=== PATIENT | female | born 2000 | race Hispanic/Latino ===

== ENCOUNTER 2023-01-21 17:05 | Inpatient (IN) | payer OTHER ==
[2023-01-21 18:00] VITALS: BMI 28.9
[2023-01-21] MEDS ORDERED: hydrALAZINE 20 MG/ML VIAL SLOW IVP PRN (18:06)
[2023-01-21 18:47] LABS: #Monocytes 0.4 10x3/uL (0.0-1.1); #Neutrophils 7.1 10x3/uL (1.5-8.4); %Basophils 0.3 % (0.0-2.0); %Eosinophils 0.2 % (0.0-6.0); %Lymphocytes 22.8 % (18.0-47.0); %Monocytes 4.1 % (0.0-10.0); Hematocrit 33.6 % (34.9-44.5); Hemoglobin 10.9 g/dL (12.0-15.5); Mean Corpuscular HGB CONC 32.4 g/dL (32.0-36.0); Mean Corpuscular Hemoglobin 29.9 pg (27.0-33.0); Mean Corpuscular Volume 92.3 fl (81.6-98.3); Mean Platelet Volume 12.6 fl (7.4-10.4); Platelet Count 166 10x3/uL (150-450); RBC Distribution Width 14.2 % (11.5-14.5); Red Blood Cell (RBC) Count 3.64 10x6/uL (3.90-5.03); White Blood Cell (WBC) Count 9.9 10x3/uL (3.5-10.5)
[2023-01-21 19:06] LABS: ALT (SGPT) 8 U/L (8-55); AST (SGOT) 24 U/L (5-34); Albumin 3.3 g/dL (3.5-5.0); Alkaline Phosphatase 248 U/L (40-110); Anion Gap 15 mmol/L (10-20); BUN (Urea Nitrogen) 12 mg/dL (7.0-18.7); Bilirubin, Total 0.4 mg/dL (0.2-1.2); Calc. Creatinine Clearance 121 mL/min (70-130); Carbon Dioxide 19 mmol/L (22-29); Chloride 108 mmol/L (98-107); Estimated GFR 103; Globulin 3.4 g/dL (2.4-3.5); Glucose 93 mg/dL (70-105); Potassium 3.9 mmol/L (3.5-5.1); Protein, Total 6.7 g/dL (6.0-8.3); Sodium 138 mmol/L (136-145)
[2023-01-21 19:31] LABS: Creatinine, Urine 71.04 mg/dL (47-110)
== END 2023-01-21 22:27 | disposition home or self-care (01) | DRG 833 ==
LOC: CSHLD 17:05
PROVIDERS: ADMIT Student in an Organized Health Care Education/Training Program; ATTEND Student in an Organized Health Care Education/Training Program
DX: O12.23 Gestational edema with proteinuria, third trimester (principal); Z3A.37 37 weeks gestation of pregnancy; O99.513 Diseases of the respiratory system complicating pregnancy, third trimester; J45.909 Unspecified asthma, uncomplicated
CPT/HCPCS: 76819; 80053; 82570; 84156; 85025

== ENCOUNTER 2023-01-23 10:54 | Inpatient (IN) | payer OTHER ==
[~2023-01-23 10:54] MED LIST: Bupivacaine 0.25% HCL 30 ML VIAL ONE
[2023-01-23] MEDS ORDERED: Labetalol HCl 100 MG/20 ML VIAL SLOW IVP PRN ×2 (10:58)
[2023-01-23] MEDS ORDERED: Diphenoxylate HCl/Atropine Tablet PO PRN (10:58)
[2023-01-23] MEDS ORDERED: Tranexamic Acid 1,000 MG/10 ML VIAL IVP PRN (10:58)
[2023-01-23] MEDS ORDERED: Promethazine HCl 25 MG/ML VIAL IM PRN (10:58)
[2023-01-23] MEDS ORDERED: Acetaminophen 500 MG TAB PO PRN (10:58)
[2023-01-23] MEDS ORDERED: hydrALAZINE 20 MG/ML VIAL SLOW IVP PRN ×3 (10:58)
[2023-01-23] MEDS ORDERED: Carboprost 250 MCG/ML AMP IM PRN (10:58)
[2023-01-23] MEDS ORDERED: Lorazepam 2 MG/ML VIAL SLOW IVP PRN (10:58)
[2023-01-23] MEDS ORDERED: Ondansetron PF 4 MG/2 ML Vial IVP PRN (10:58)
[2023-01-23] MEDS ORDERED: Misoprostol 200 MCG TAB PR PRN (10:58)
[2023-01-23] MEDS ORDERED: Butorphanol Tartrate 1 MG/ML VIAL SLOW IVP PRN (10:58)
[2023-01-23] MEDS ORDERED: Calcium Gluc 4.6 MEQ/10 ML (100 MG/ML) SLOW IVP PRN (10:58)
[2023-01-23] MEDS ORDERED: Oxytocin 30 units/NS 500 ML 500 ML IV SCH (11:00)
[2023-01-23 11:57] VITALS: BMI 29.2
[2023-01-23 12:19] LABS: Hematocrit 33.2 % (34.9-44.5); Hemoglobin 11.1 g/dL (12.0-15.5); Mean Corpuscular HGB CONC 33.4 g/dL (32.0-36.0); Mean Corpuscular Hemoglobin 30.1 pg (27.0-33.0); Mean Platelet Volume 12.7 fl (7.4-10.4); Platelet Count 147 10x3/uL (150-450); RBC Distribution Width 14.4 % (11.5-14.5); Red Blood Cell (RBC) Count 3.69 10x6/uL (3.90-5.03); White Blood Cell (WBC) Count 6.7 10x3/uL (3.5-10.5)
[2023-01-23 12:26] LABS: ALT (SGPT) 9 U/L (8-55); AST (SGOT) 20 U/L (5-34); Alkaline Phosphatase 237 U/L (40-110); Anion Gap 14 mmol/L (10-20); BUN (Urea Nitrogen) 11 mg/dL (7.0-18.7); Bilirubin, Total 0.5 mg/dL (0.2-1.2); Calc. Creatinine Clearance 141 mL/min (70-130); Calcium 8.8 mg/dL (7.8-10.44); Carbon Dioxide 19 mmol/L (22-29); Chloride 110 mmol/L (98-107); Estimated GFR 122; Globulin 2.7 g/dL (2.4-3.5); Glucose 96 mg/dL (70-105); Protein, Total 5.7 g/dL (6.0-8.3); Sodium 139 mmol/L (136-145)
[2023-01-23 12:56] LABS: HBSAg Index 0.05 S/CO (0-0.99); Hep B Surf Ag - L&D Non-Reactive S/CO (NonReactive)
[2023-01-23 12:57] LABS: Syphilis Antibody Nonreactive (Nonreactive); Syphilis Antibody Index 0.05 S/CO (<1.00 Non-Reactive)
[2023-01-23] MEDS: Lactated Ringer's 1,000 ML IV SCH ×2 (13:00→16:50)
[2023-01-23] MEDS ORDERED: fentaNYL/Ropivacaine Epidural 100 ML ONE (16:33)
[2023-01-23] MEDS ORDERED: Ampicillin 2 GM VIAL ONE (21:35)
[2023-01-23] MEDS ORDERED: Gentamicin 300 MG in Sodium Chloride 0.9% 100 ML IVPB SCH (21:45)
[2023-01-23] MEDS ORDERED: Furosemide 40 MG/4 ML VIAL SLOW IVP SCH (22:00)
[2023-01-23 22:25] LABS: #Monocytes 0.4 10x3/uL (0.0-1.1); #Neutrophils 10.6 10x3/uL (1.5-8.4); %Basophils 0.2 % (0.0-2.0); %Lymphocytes 12.1 % (18.0-47.0); %Monocytes 3.4 % (0.0-10.0); %Neutrophils 83.8 % (40.0-75.0); Hematocrit 30.1 % (34.9-44.5); Hemoglobin 9.8 g/dL (12.0-15.5); Mean Corpuscular HGB CONC 32.6 g/dL (32.0-36.0); Mean Corpuscular Hemoglobin 29.7 pg (27.0-33.0); Mean Corpuscular Volume 91.2 fl (81.6-98.3); Mean Platelet Volume 12.8 fl (7.4-10.4); Platelet Count 144 10x3/uL (150-450); RBC Distribution Width 14.6 % (11.5-14.5); White Blood Cell (WBC) Count 12.6 10x3/uL (3.5-10.5)
[2023-01-23] MEDS: Ampicillin 2 GM in Sodium Chloride 0.9% 100 ML IVPB SCH (23:47)
[2023-01-23] MEDS ORDERED: Ibuprofen 800 MG TAB PO PRN (23:48)
[2023-01-24] MEDS ORDERED: Ondansetron PF 4 MG/2 ML Vial IVP PRN (01:09)
[2023-01-24] MEDS ORDERED: Milk Of Magnesia 30 ML UDCUP PO PRN (01:09)
[2023-01-24] MEDS ORDERED: Misoprostol 200 MCG TAB VAG PRN (01:09)
[2023-01-24] MEDS ORDERED: Lanolin Ointment 7 GM TUBE TOP PRN (01:09)
[2023-01-24] MEDS ORDERED: hydrALAZINE 20 MG/ML VIAL SLOW IVP PRN (01:09)
[2023-01-24] MEDS ORDERED: diphenhydrAMINE 25 MG CAP PO PRN (01:09)
[2023-01-24] MEDS ORDERED: Bisacodyl 10 MG SUPP PR PRN (01:09)
[2023-01-24] MEDS ORDERED: Preparation H Ointment 28 GM TUBE PR PRN (01:09)
[2023-01-24] MEDS ORDERED: Benzocaine-Menthol 82.5 ML CAN TOP PRN (01:09)
[2023-01-24 04:29] LABS: Hematocrit 26.1 % (34.9-44.5); Hemoglobin 8.9 g/dL (12.0-15.5); Mean Corpuscular HGB CONC 34.1 g/dL (32.0-36.0); Mean Corpuscular Hemoglobin 30.8 pg (27.0-33.0); Mean Corpuscular Volume 90.3 fl (81.6-98.3); Mean Platelet Volume 12.2 fl (7.4-10.4); Platelet Count 141 10x3/uL (150-450); RBC Distribution Width 14.6 % (11.5-14.5); Red Blood Cell (RBC) Count 2.89 10x6/uL (3.90-5.03); White Blood Cell (WBC) Count 14.1 10x3/uL (3.5-10.5)
[2023-01-24 04:52] LABS: MDiff Complete? YES
[2023-01-24 05:15] LABS: Platelet Adequacy Comment Appears Decreased; RBC Morph Comment Within Normal Limits
[2023-01-24 05:17] LABS: Band 6 % (5-11); Lymphocytes 19 % (21-51); Monocytes 4 % (0-10); Neutrophil 71 % (42-75)
[2023-01-24] MEDS: Ampicillin 2 GM in Sodium Chloride 0.9% 100 ML IVPB SCH ×3 (05:50→18:20)
[2023-01-24] MEDS: Ibuprofen 800 MG TAB PO SCH ×3 (05:50→21:44)
[2023-01-24] MEDS: Docusate 100 MG CAP PO SCH ×2 (09:12→21:44)
[2023-01-24] MEDS: Prenatal Vitamin 1 TAB PO SCH (09:12)
[2023-01-25] MEDS: Ibuprofen 800 MG TAB PO SCH (05:32)
[2023-01-25] MEDS: Docusate 100 MG CAP PO SCH (08:51)
[2023-01-25] MEDS: Prenatal Vitamin 1 TAB PO SCH (08:51)
[2023-01-25 10:55] VITALS: BP 118/76; TEMP 97.4
== END 2023-01-25 12:30 | disposition home or self-care (01) | DRG 807 ==
LOC: CSHLD 10:54 → CSHPP 01-24 00:40
PROVIDERS: ADMIT Emergency Medicine; ATTEND Emergency Medicine
PROC: 10E0XZZ Delivery of Products of Conception, External Approach (ICD-10-PCS; principal; 2023-01-23)
PROC: 0KQM0ZZ Repair Perineum Muscle, Open Approach (ICD-10-PCS; 2023-01-23)
PROC: 10907ZC Drainage of Amniotic Fluid, Therapeutic from Products of Conception, Via Natural or Artificial Opening (ICD-10-PCS; 2023-01-23)
DX: O14.94 Unspecified pre-eclampsia, complicating childbirth (principal); Z37.0 Single live birth; O13.4 Gestational [pregnancy-induced] hypertension without significant proteinuria, complicating childbirth; Z3A.38 38 weeks gestation of pregnancy; J45.909 Unspecified asthma, uncomplicated; O99.52 Diseases of the respiratory system complicating childbirth; O70.1 Second degree perineal laceration during delivery
CPT/HCPCS: 36415; 51702; 80053; 85025; 85027; 86780; 86850; 86900; 86901; 87040; 87340; J0290; J1580; J1940; J2590; J3490; J7120; S0020